=== PATIENT | male | born 1975 | race Hispanic/Latino ===

== ENCOUNTER 2018-10-30 22:10 | Observation (INO) | payer OTHER ==
[~2018-10-30] VITALS: Ht 167.6 cm; Wt 119.9 kg
--- OUTSIDE RECORDS SUMMARY | 2018-10-30 22:14 | XMS REPORT | Encounter Summary ---
Author Organization Unknown Address [address] [place] [address] Phone [phone] Reason for Visit Medical Complaint Instructions 1. Viral upper respiratory tract infection fluticasone 50 mcg/actuation nasal spray,suspension benzonatate 200 mg capsule 2. Influenza-like symptoms rapid flu (A+B) 3. Throat symptom rapid strep group A, throat 4. Elevated blood-pressure reading without diagnosis of hypertension elevated blood pressure: care instructions 5. Body mass index 40+ - severely obese body mass index: care instructions Discussion Note Pt is in NAD; Verbalizes understanding of all instructions with no questions at this time. Plan of Care Patient Instructions Stop sudafed. Take tylenol over the counter for pain/headache/fever as per pacakge insert. Take benzonatate for cough as directed. Take fluticasone as needed for congestion. [place] one spray in each nostril twice a day. Take a warm, steamy shower, blow your nose thereafter, and spray in each nostril. Tilt your head up for about 10 seconds and breath through your mouth. Do not sniff or snort the medication in or else the medication will go to your throat and not be absorbed appropriately. Take levocetirizine for allergy like symptoms like runny nose, sneezing and watery eyes. Take medications as prescribed and follow up with a PCP within 2-3 if symptoms worsen as discussed. Recommend monitor BP at home and document, bring BP log to PCP for review. Recommend follow a low sodium/fat/carb diet and exercise 30-45 mins/d 3-4 days a week once symptoms resolve. Reminders Provider Appointments None recorded. Lab Rapid Flu (A+B) 08/27/2018 [facility] Rapid Strep Group a, Throat 08/27/2018 [facility] Referral None recorded. Procedures None recorded. Surgeries None recorded. Imaging None recorded. Medications Name Start Date benzonatate 200 mg capsule Take 1 capsule 3 times a day by oral route as needed. fluticasone 50 mcg/actuation nasal spray,suspension [place] 2 sprays every day by intranasal route as needed. Medications Administered None recorded. Vitals Height Weight BMI Blood Pressure 5 ft 6 in 255 lbs 41.2 kg/m2 (1) 110/84 mm[Hg] (2) 115/80 mm[Hg] Lab Results Date Name Specimen Result Interpretation Description Value Range Status Address Rapid Strep Group a, Throat Result negative [facility]: [address] [place] [address] Swab Location Left and Right tonsillar pillars [facility]: [address] [place] [address] Rapid Flu (A+B) Influenza a negative [facility]: [address] [place] [address] Influenza B negative [facility]: [address] [place] [address] Allergies Code Code System Name Reaction Severity Status Onset NKDA Problems Name Status Onset Date Source Viral Upper Respiratory Tract Infection Active 08/27/2018 Influenza-like Symptoms Active 08/27/2018 Elevated Blood-pressure Reading without Diagnosis of Hypertension Active 08/27/2018 Body Mass Index 40+ - Severely Obese Active 08/27/2018 Throat Symptom Active 08/27/2018 Procedures Date Name Performed by Appendectomy Information not available Vaccine List None recorded. Social History Smoking Status Never Smoker Past Encounters 08/27/2018 Viral Upper Respiratory Tract Infection; Influenza-like Symptoms; Throat Symptom; Elevated Blood-pressure Reading without Diagnosis of Hypertension; Body Mass Index 40+ - Severely Obese Araceli Thorpe, [facility]-C: [address] [place] [address], Ph. History of Present Illness [id number]-Den Reported By: Patient HPI: Quality: symptoms worse in the evening. Duration: 1 days. Severity: highest temperature 99.1. Onset/Timing: first recorded 08/27/18 in clinic. Context: no ill contacts, no tick/insect bites, no recent travel, no new medications. Associated Symptoms: no fever/chills, no muscle aches, no rash, no lethargy, headache, cold symptoms, cough, nasal passage blockage (stuffiness), nasal discharge; post nasal drip, itchy throat, and body aches. Modifying Factors nothing gives relief Review of Systems:ROS as noted in the HPI Review of Systems Basic Reported By: Patient Physical Exam Adult Basic, Adult Male Complete Reported By: Patient Constitutional: General Appearance: healthy-appearing, morbidly obese. Level of Distress: NAD. Ambulation: ambulating normally Psychiatric: Mental Status: active and alert. Orientation: to time, to place, to person Eyes: Lids and Conjunctivae: non-injected, no discharge, no pallor. Pupils: PERRLA. Corneas: grossly intact. EOM: EOMI. Lens: clear. Vision: peripheral vision grossly intact Zaq-Ujdc-Tywdp-Throat: Ears: no lesions on external ear, no outer ear tenderness, EACs clear, TMs clear. Hearing: no hearing loss. Nose: no lesions on external nose, nares patent, no septal deviation, nasal passages clear, no sinus tenderness, nasal discharge--rhinorrhea, post nasal drip; B/L NTs pink and edematous. Lips, Teeth, and Gums: no mouth or lip ulcers, no bleeding gums, normal dentition. Oropharynx: moist mucous membranes, no erythema, no exudates, tonsils not enlarged Neck: Neck: supple. Lymph Nodes: no cervical LAD Lungs: Respiratory effort: no dyspnea, no tachypnea, no use of accessory muscles, no intercostal retractions. Auscultation: breath sounds normal, good air movement Cardiovascular: Heart Auscultation: RRR, no murmurs Neurologic: Gait and Station: normal gait, normal station. Cranial Nerves: grossly intact
--- OUTSIDE RECORDS SUMMARY | 2018-10-30 22:14 | XMS REPORT | Continuity of Care Document ---
Author Author [facility] Interface Address Unknown Phone Unavailable Problems Problem Status Onset Date Classification Date Reported Comments Source Body mass index 40+ - severely obese 08/27/2018 Diagnosis 08/27/2018 [facility] Elevated blood-pressure reading without diagnosis of hypertension 08/27/2018 Diagnosis 08/27/2018 [facility] Throat symptom 08/27/2018 Diagnosis 08/27/2018 [facility] Influenza-like symptoms 08/27/2018 Diagnosis 08/27/2018 [facility] Viral upper respiratory tract infection 08/27/2018 Diagnosis 08/27/2018 [facility] Viral Upper Respiratory Tract Infection 08/27/2018 Problem 08/27/2018 [facility] Influenza-like Symptoms 08/27/2018 Problem 08/27/2018 [facility] Elevated Blood-pressure Reading without Diagnosis of Hypertension 08/27/2018 Problem 08/27/2018 [facility] Body Mass Index 40+ - Severely Obese 08/27/2018 Problem 08/27/2018 [facility] Throat Symptom 08/27/2018 Problem 08/27/2018 [facility] Urinary tract infectious disease 04/09/2017 Diagnosis 04/09/2017 [facility] Feeling feverish 04/09/2017 Diagnosis 04/09/2017 [facility] Tachycardia 04/09/2017 Diagnosis 04/09/2017 [facility] Medications Medication Details Route Status Patient Instructions Ordering Provider Order Date Source Ciprofloxacin 500 MG Oral Tablet ciprofloxacin 500 mg tablet Take 1 tablet every 12 hours by oral route as directed for 10 days. Active [facility] benzonatate 200 MG Oral Capsule benzonatate 200 mg capsule Take 1 capsule 3 times a day by oral route as needed. Active [facility] Fluticasone propionate 0.05 MG/ACTUAT Metered Dose Nasal [place] fluticasone 50 mcg/actuation nasal spray,suspension [place] 2 sprays every day by intranasal route as needed. Active [facility] Allergies, Adverse Reactions, Alerts Substance Category Reaction Severity Reaction type Status Date Reported Comments Source Immunizations Immunization Date Given Site Status Last Updated Comments Source Results Order Name Results Value Reference Range Date Interpretation Comments Source RESULT negative 08/27/2018 [facility] SWAB LOCATION Left and Right tonsillar pillars 08/27/2018 [facility] Influenza A negative 08/27/2018 [facility] Influenza B negative 08/27/2018 [facility] Urinalysis macro (dipstick) panel - Urine COLOR : Mikaela 04/09/2017 [facility] Urinalysis macro (dipstick) panel - Urine CLARITY : Cloudy 04/09/2017 [facility] Urinalysis macro (dipstick) panel - Urine LEUKOCYTES : Small 04/09/2017 [facility] Urinalysis macro (dipstick) panel - Urine NITRITES : Negative 04/09/2017 [facility] Urinalysis macro (dipstick) panel - Urine UROBILINOGEN : Normal 04/09/2017 [facility] Urinalysis macro (dipstick) panel - Urine PROTEIN : 100 04/09/2017 [facility] Urinalysis macro (dipstick) panel - Urine pH : 7.5 04/09/2017 [facility] Urinalysis macro (dipstick) panel - Urine BLOOD : Negative 04/09/2017 [facility] Urinalysis macro (dipstick) panel - Urine SPECIFIC GRAVITY : 1.025 04/09/2017 [facility] Urinalysis macro (dipstick) panel - Urine KETONES : Small 04/09/2017 [facility] Urinalysis macro (dipstick) panel - Urine BILIRUBIN : Negative 04/09/2017 [facility] Urinalysis macro (dipstick) panel - Urine GLUCOSE Negative 04/09/2017 [facility] Influenza A negative 04/09/2017 [facility] Influenza B negative 04/09/2017 [facility] Vital Signs Vital Sign Value Date Comments Source Diastolic (mm Hg) 80 08/27/2018 [facility] Height 66 08/27/2018 [facility] Systolic (mm Hg) 115 08/27/2018 [facility] Weight 255 08/27/2018 [facility] Diastolic (mm Hg) 70 04/09/2017 [facility] Height 66 04/09/2017 [facility] Systolic (mm Hg) 100 04/09/2017 [facility] Weight 245 04/09/2017 [facility] Encounters Location Location Details Encounter Type Encounter Number Reason For Visit Attending Provider ADM Date DC Date Status Source [place] - [facility] - [id number] Resendiz-C: [address] [facility] [place] [address], Ph. [id number] Araceli Thorpe 04/09/2017 [facility] [place] - [facility] - [id number] Harveyroy, ADMISSION SPECIALIST-C: [address] [place] [address], Ph. [id number] Araceli Thorpe 04/09/2017 [facility] [place] - [facility] - [id number] Angela Maurilio, ADMISSION SPECIALIST-C: [address] [place] [address], Ph. [id number] Araceli Thorpe 08/27/2018 [facility] Procedures Procedure Code Date Perfomer Comments Source Appendectomy [facility]
--- OUTSIDE RECORDS SUMMARY | 2018-10-30 22:14 | XMS REPORT | Encounter Summary ---
Author Organization Unknown Address [address] [place] [address] Phone [phone] Reason for Visit Medical Complaint Instructions 1. Urinary tract infectious disease urinary tract infections in men: care instructions ciprofloxacin 500 mg tablet urinalysis, dipstick culture, urine 2. Feeling feverish rapid flu (A+B) 3. Tachycardia Discussion Note Pt is in NAD; Verbalizes understanding of all instructions with no questions at this time. Plan of Care Patient Instructions Recommend proper hydration and frequent urination. Recommend urinating after sexual intercourse. Avoid using tubs. Take medications as prescribed. Return to clinic or follow up with your PCP within 2-3 days if symptoms worsen as discussed. In case of an emergency call 911. Reminders Provider Appointments None recorded. Lab Rapid Flu (A+B) 04/09/2017 [facility] Urinalysis, Dipstick 04/09/2017 [facility] Culture, Urine 04/09/2017 [facility] Referral None recorded. Procedures None recorded. Surgeries None recorded. Imaging None recorded. Medications Name Start Date ciprofloxacin 500 mg tablet Take 1 tablet every 12 hours by oral route as needed for 10 days. Medications Administered None recorded. Vitals Height Weight BMI Blood Pressure 5 ft 6 in 245 lbs 39.5 kg/m2 100/70 mm[Hg] Lab Results Date Name Specimen Result Interpretation Description Value Range Status Address Urinalysis, Dipstick Color : Mikaela [facility]: [address] [place] [address] Clarity : Cloudy [facility]: [address] [place] [address] Leukocytes : Small [facility]: [address] [place] [address] Nitrites : Negative [facility]: [address] [place] [address] Urobilinogen : Normal [facility]: [address] [place] [address] Protein : 100 [facility]: [address] [place] [address] Ph : 7.5 [facility]: [address] [place] [address] Blood : Negative [facility]: [address] [place] [address] Specific [place] : 1.025 [facility]: [address] [place] [address] Ketones : Small [facility]: [facility] Bilirubin : Negative [facility]: [address] [facility] Glucose Negative [facility]: [address] [facility] Rapid Flu (A+B) Influenza a negative [facility]: [address] [facility] Influenza B negative [facility]: [address] [facility] Allergies Code Code System Name Reaction Severity Onset NKDA Problems None recorded. Procedures Date Name Performed by Appendectomy Information not available Vaccine List None recorded. 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 History of Present Illness [id number]-PNP-Ndxcvgx-Hernia Reported By: Patient HPI: Location: abdomen, bladder. Quality: aching, pressure, pain. Severity: moderate. Duration: ; 2 days. Onset/Timing: gradual. Context: no prior history of STDs, no known exposure to STD, sexually active, heterosexual. Modifying factors nothing gives relief. Associated Symptoms: no headache, no penile lesions/sores, no scrotal lesions/sores, no penile discharge, no flank pain, no jaundice, no blood in the urine, muscle aches, fever/chills, pain during urination, hesitancy; suprapubic cramps and mild pain, and darkening of the urine Review of Systems:ROS as noted in the HPI Review of Systems Basic Reported By: Patient Physical Exam Adult Basic, Adult Male Complete Reported By: Patient Constitutional: General Appearance: healthy-appearing, well-nourished, well-developed. Level of Distress: NAD. Ambulation: ambulating normally Psychiatric: Mental Status: active and alert. Orientation: to time, to place, to person Eyes: Lids and Conjunctivae: non-injected Neck: Neck: supple. Lymph Nodes: no cervical LAD Lungs: Respiratory effort: no dyspnea, no tachypnea, no use of accessory muscles, no intercostal retractions. Auscultation: breath sounds normal, good air movement Cardiovascular: Heart Auscultation: RRR, no murmurs Abdomen: Bowel Sounds: normal. Inspection and Palpation: soft, no guarding, no rebound tenderness, no masses, no CVA tenderness, suprapubic tenderness. Hernia: none palpable
--- OUTSIDE RECORDS SUMMARY | 2018-10-30 22:14 | XMS REPORT | Encounter Summary ---
Author Organization Unknown Address [address] [place] [address] Phone [phone] Reason for Visit Medical Complaint Instructions 1. [...] oral route as directed for 10 days. Medications Administered None recorded. Vitals Height Weight BMI Blood Pressure 5 ft 6 in 245 lbs 39.5 kg/m2 100/70 mm[Hg] Lab Results Date Name Specimen Result Interpretation Description Value Range Status Address Urinalysis, Dipstick Color : Mikaela [facility]: [address] [place] [address] Clarity : Cloudy [facility]: [address] [place] [address] Leukocytes : Small [facility]: [address] [place] [address] Nitrites : Negative [facility]: [address] [place] [address] Urobilinogen : Normal [facility]: [address] [place] [address] Protein : 100 [facility]: [address] [place] [address] Ph : 7.5 [facility]: [address] [place] [address] Blood : Negative [facility]: [address] [place] [address] Specific [place] : 1.025 [facility]: [address] [place] [address] Ketones : Small [facility]: [facility] Bilirubin : Negative [facility]: [facility] Glucose Negative [facility]: [facility] Rapid Flu (A+B) Influenza a negative [facility]: [facility] Influenza B negative [facility]: [facility] Allergies Code Code System Name Reaction Severity Onset NKDA Problems None recorded. Procedures Date Name Performed by Appendectomy Information not available Vaccine List None recorded. Social History Smoking Status Never Smoker Past Encounters 04/09/2017 Urinary Tract Infectious Disease; Feeling Feverish; Tachycardia Araceli Thorpe, DIVISION SUPERVISOR-C: [address] [place] [address], Ph. History of Present Illness Vlmz-NKW-Uacdtwc-Hernia Reported By: Patient HPI: Location: abdomen, bladder. [...]
[2018-10-30] MEDS ORDERED: VANCOMYCIN 1GM/NS 250 ML 250 ML IV STA (22:37)
[2018-10-30] MEDS ORDERED: PIPER-TAZ 3.375 GM 50 ML IV STA (22:37)
[2018-10-30] MEDS ORDERED: SODIUM CHLORIDE 0.9% 1000ML 1,000 ML IV STA (22:37)
[2018-10-30] MEDS ORDERED: ONDANSETRON HCL INJ 2MG/ML 2ML 2 MG/ML VIAL IV PRN (23:00)
[2018-10-30] MEDS ORDERED: MORPHINE SULFATE INJ 4 MG/ML INJ 1ML IV PRN (23:00)
[2018-10-30 23:34] LABS: BASOPHILS # (AUTO) 0.1 (0.0-0.1); BASOPHILS % 0.8 % (0.0-1.0); EOSINOPHILS # (AUTO) 0.1 (0.0-0.4); EOSINOPHILS % 1.4 % (0.0-6.0); HEMOGLOBIN 14.2 g/dL (14.0-18.0); LYMPHOCYTES # (AUTO) 2.1 (1.0-3.2); LYMPHOCYTES % 32.1 % (18.0-39.1); MEAN CORPUSCULAR HEMOGLOBIN 29.2 pg (28-32); MEAN CORPUSCULAR HGB CONC 34.6 g/dL (31-35); MEAN CORPUSCULAR VOLUME 84.4 fL (81-99); MONOCYTES # (AUTO) 0.5 (0.2-0.8); MONOCYTES % 7.8 % (4.4-11.3); NEUTROPHILS # (AUTO) 3.7 (2.1-6.9); NEUTROPHILS % 57.4 % (38.7-80.0); PLATELET COUNT 324 x10e3/uL (140-360); RED BLOOD COUNT 4.86 x10e6/uL (4.3-5.7); RED CELL DISTRIBUTION WIDTH 13.4 % (11.7-14.4)
[2018-10-30 23:50] LABS: ALANINE AMINOTRANSFERASE 129 IU/L (0-55); ALBUMIN 3.7 g/dL (3.5-5.0); ALKALINE PHOSPHATASE 282 IU/L (40-150); ANION GAP 17.2 mmol/L (8-16); BLOOD UREA NITROGEN 13 mg/dL (7-26); BUN/CREATININE RATIO 11 (6-25); CALCIUM 9.2 mg/dL (8.4-10.2); CARBON DIOXIDE 22 mmol/L (22-29); CHLORIDE 104 mmol/L (98-107); CREATININE, SERUM 1.23 mg/dL (0.72-1.25); EST GLOMERULAR FILTRATION RATE > 60 ML/MIN (60-); GLUCOSE 103 mg/dL (74-118); POTASSIUM 4.2 mmol/L (3.5-5.1); SODIUM 139 mmol/L (136-145)
[2018-10-30] MEDS ORDERED: ENOXAPARIN SODIUM INJ 100 MG/ML SYR SC STA (23:53)
[2018-10-31] MEDS: SODIUM CHLORIDE 0.9% 1000ML 1,000 ML IV SCH ×2 (01:40→11:23)
[2018-10-31] MEDS: VANCOMYCIN 1GM/NS 250 ML 250 ML IV SCH ×3 (02:57→23:53)
[2018-10-31] MEDS ORDERED: PIPER-TAZ 3.375 GM 50 ML IV SCH (06:00)
--- NOTE | 2018-10-31 06:46 | NUR ---
WALKING ROUNDS WITH HIEU ESTES
--- NOTE | 2018-10-31 06:49 | NUR ---
RECEIVED BEDSIDE REPORT FROM MAICOL ESTES TO ASSUME PATIENTS CARE
--- NOTE | 2018-10-31 07:45 | NUR ---
ROUNDING DONE. PT RESTING QUIETLY WITH EYES CLOSED. AROUSES EASILY TO VOICE. NO COMPLAINTS AT THIS TIME. UPDATED PT ON THE PLAN OF CARE. PT PENDING ADMISSION
[2018-10-31] MEDS: PIPER-TAZ 3.375 GM 50 ML IV SCH ×2 (09:59→18:10)
--- NOTE | 2018-10-31 10:08 | NUR ---
PT AMBULATED TO THE RESTROOM WITH STEADY GAIT
--- NOTE | 2018-10-31 13:57 | NUR ---
PT RESTING QUIETLY WATCHING TV. FAMILY AT BEDSIDE. DENIES ANY PAIN. UPDATED PT ON THE PLAN OF CARE. STILL AWAITING ADMISSION
--- NOTE | 2018-10-31 14:25 | NUR ---
PT PLACED ON A HOSPITAL BED
--- NOTE | 2018-10-31 18:45 | NUR ---
REPORT GIVEN TO PM NURSE VAZQUEZ Murillo RN
--- NOTE | 2018-10-31 21:51 | NUR ---
attempted to call report without success
[2018-10-31 23:00] VITALS: BP 126/81
[2018-10-31 23:30] VITALS: BP 126/81
[2018-11-01] VITALS (7 sets, daily range): BP systolic 105–129; BP diastolic 61–81
[2018-11-01] MEDS: PIPER-TAZ 3.375 GM 50 ML IV SCH ×3 (02:33→19:17)
--- NOTE | 2018-11-01 07:00 | NUR ---
SHIFT REPORT RECEIVED FROM NIGHT RN WHILE ROUNDING. PT DENIES NEEDS AT THIS TIME.
[2018-11-01] MEDS ORDERED: ACETAMINOPHEN 325 MG TAB PO PRN (08:45)
[2018-11-01] MEDS: VANCOMYCIN 1GM/NS 250 ML 250 ML IV SCH ×2 (11:03→23:00)
[2018-11-02] VITALS: BP 98/53
[2018-11-02] MEDS: PIPER-TAZ 3.375 GM 50 ML IV SCH ×2 (02:00→09:13)
[2018-11-02 04:00] VITALS: BP 101/54
[2018-11-02 05:41] LABS: BASOPHILS % 0.6 % (0.0-1.0); EOSINOPHILS # (AUTO) 0.2 (0.0-0.4); EOSINOPHILS % 2.9 % (0.0-6.0); HEMATOCRIT 40.7 % (38.2-49.6); HEMOGLOBIN 13.1 g/dL (14.0-18.0); LYMPHOCYTES # (AUTO) 2.5 (1.0-3.2); LYMPHOCYTES % 36.7 % (18.0-39.1); MEAN CORPUSCULAR HEMOGLOBIN 28.1 pg (28-32); MEAN CORPUSCULAR HGB CONC 32.2 g/dL (31-35); MEAN CORPUSCULAR VOLUME 87.2 fL (81-99); MONOCYTES # (AUTO) 0.5 (0.2-0.8); MONOCYTES % 7.2 % (4.4-11.3); NEUTROPHILS # (AUTO) 3.6 (2.1-6.9); NEUTROPHILS % 51.7 % (38.7-80.0); PLATELET COUNT 313 x10e3/uL (140-360); RED BLOOD COUNT 4.67 x10e6/uL (4.3-5.7); RED CELL DISTRIBUTION WIDTH 13.3 % (11.7-14.4)
[2018-11-02 06:01] LABS: ANION GAP 12.3 mmol/L (8-16); BLOOD UREA NITROGEN 14 mg/dL (7-26); BUN/CREATININE RATIO 12 (6-25); CARBON DIOXIDE 25 mmol/L (22-29); CHLORIDE 104 mmol/L (98-107); CREATININE, SERUM 1.13 mg/dL (0.72-1.25); EST GLOMERULAR FILTRATION RATE > 60 ML/MIN (60-); GLUCOSE 98 mg/dL (74-118); POTASSIUM 4.3 mmol/L (3.5-5.1); SODIUM 137 mmol/L (136-145)
[2018-11-02 07:39] VITALS: BP 127/79
[2018-11-02 08:00] VITALS: BP 127/79
[2018-11-02] MEDS: FAMOTIDINE 20 MG TAB PO SCH ×2 (08:22→16:31)
--- NOTE | 2018-11-02 09:08 | NUR ---
SOCIAL WORK INITIAL ASSESSMENT Sign Fabricator to bedside to discuss plan of care with patient/family. CM/SW role and care transitions discussed. Anticipated discharge plan discussed along with duration of care. CM/SW discussed patients right to make decisions in care. CM/SW work hours given. 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 Name and number was also written on the patients whiteboard. Patient verbalized understanding of discussion. CM will follow-up with ongoing discharge and transition of care needs.
[2018-11-02] MEDS ORDERED: SODIUM CHLORIDE 0.9% 250ML 250 ML ONE (11:17)
[2018-11-02 11:20] VITALS: BP 109/65
--- NOTE | 2018-11-02 11:31 | NUR ---
WOUND CARE CONSULTATION- INITIAL EVALUATION Patient admitted to ER for cellulitis of RLE. LABS: WBC6.9 HGB13.1 HCT40.7 NEUT%51.7 GLU98 ALB3.7 -Blood Cx - Negative. -Wound Care Consulted for RLE Wounds. PATIENT VISIT: - Patient in bed calm and in good spirits. AA0x4 - VSS, Afebrile. - RLE Medial aspect- scabbed areas, non-draining with mild erythema to surrounding areas. Open To Air. - Pt states to have had recent tattoo that became painful and very red and draining. - Pt on IV ABX- Vancomycin - Site not cultured. No longer draining and appears to be healing. IMPRESSION: RLE- Medial - Infected Tattoo Site with Scabbing and Dry Skin. RECOMMENDATION: RLE- Medial - Infected Tattoo Site. - Wash Site with Hibiclens Soap and Pat Dry Daily - Apply Polysporin Ointment and Leave Open To Air q12H. Thank you for consulting with Wound Care. Addendum: 11/02/18 at 1139 by Joss Gil RN Amended: Links added.
[2018-11-02] MEDS: VANCOMYCIN 1GM/NS 250 ML 250 ML IV SCH (11:37)
--- NOTE | 2018-11-02 11:51 | NUR ---
CM SPOKE TO DR. STRONG REGARDING PATIENT PLAN OF CARE AND BARRIERS TO DISCHARGE. DR. STRONG INFORMED OF PATIENT STATUS. PER DR. STRONG, PATIENT TO DISCHARGE ON PO ANTIBIOTICS. BEDSIDE RN, ARTI REVELES.
[2018-11-02 15:54] VITALS: BP 128/84
[2018-11-02] MEDS ORDERED: AUGMENTIN 875-1 EACH PO (17:22)
--- NOTE | 2018-11-02 18:38 | NUR ---
IV DC'D SECURED WITH 4X4 GAUZE AND TAPE. RX GIVEN EDUCATION AND F/U INSTRUCTIONS.
[2018-11-02] MEDS ORDERED: BACITRACIN/POLYMYXIN 30 GM OINT TP SCH (21:00)
--- NOTE | 2018-11-03 00:57 | Discharge Summary ---
PRIMARY CARE PROVIDER: Dr. Isacc Onofre. ADMITTING DIAGNOSIS: Cellulitis, right lower leg. DISCHARGE DIAGNOSIS: Cellulitis, right lower leg. BRIEF HISTORY: Mr. Matute is a 43-year-old gentleman who presents with erythema and swelling of the right medial calf after having extensive tattoo done. He failed outpatient treatment with p.o. Bactrim and presented with worsening cellulitis. HOSPITAL COURSE: The patient was started on IV vancomycin and Zosyn. His erythema improved within 48 hours and he was discharged home on p.o. Augmentin with instructions to resume a regular diet, activity as tolerated, and follow up with his PCP within 2 weeks. SAMUEL STRONG MD Job#: [id number] CF
== END 2018-11-02 18:55 | disposition home or self-care (01) ==
LOC: ER 22:10 → ERHOLD 23:18 → MED/SURG3 10-31 00:38 → ERHOLD 10-31 01:34 → IMCU 10-31 22:45
PROVIDERS: ADMIT Internal Medicine; ATTEND Internal Medicine
DX: L03.115 Cellulitis of right lower limb (principal); L81.8 Other specified disorders of pigmentation
CPT/HCPCS: 36415 ×3; 80048; 80053; 80202; 83605; 85025 ×2; 87040; 93971; 99284; G0378 ×4; J1650; J2543 ×3; J3370 ×3; J7030 ×2; J7050

== ENCOUNTER 2021-02-24 02:59 | Emergency (ER) | payer OTHER ==
[~2021-02-24] VITALS: Ht 167.6 cm; Wt 113.4 kg
[~2021-02-24 02:59] MED LIST: AUGMENTIN 875-1 EACH PO
[2021-02-24] MEDS ORDERED: PANTOPRAZOLE 40 MG 10ML VIAL IV STA (03:06)
[2021-02-24] MEDS ORDERED: ONDANSETRON HCL INJ 2MG/ML 2ML 2 MG/ML VIAL IV STA (03:06)
[2021-02-24] MEDS ORDERED: DICYCLOMINE HCL 20 MG/2 ML VIAL IM ONE ×2 (03:15→03:18)
[2021-02-24] MEDS ORDERED: SODIUM CHLORIDE 0.9% 1000ML 1,000 ML IV ONE (03:15)
[2021-02-24] MEDS ORDERED: ONDANSETRON HCL INJ 2MG/ML 2ML 2 MG/ML VIAL ONE (03:19)
[2021-02-24 03:31] LABS: BASOPHILS % 0.4 % (0.0-1.0); EOSINOPHILS # (AUTO) 0.1 (0.0-0.4); EOSINOPHILS % 0.8 % (0.0-6.0); HEMATOCRIT 46.6 % (38.2-49.6); HEMOGLOBIN 15.4 g/dL (14.0-18.0); LYMPHOCYTES # (AUTO) 2.2 (1.0-3.2); LYMPHOCYTES % 23.3 % (18.0-39.1); MEAN CORPUSCULAR HEMOGLOBIN 28.4 pg (28-32); MEAN CORPUSCULAR VOLUME 85.8 fL (81-99); MONOCYTES # (AUTO) 0.6 (0.2-0.8); MONOCYTES % 6.2 % (4.4-11.3); NEUTROPHILS # (AUTO) 6.6 (2.1-6.9); NEUTROPHILS % 69.1 % (38.7-80.0); PLATELET COUNT 263 x10e3/uL (140-360); RED BLOOD COUNT 5.43 x10e6/uL (4.3-5.7); RED CELL DISTRIBUTION WIDTH 13.3 % (11.7-14.4)
[2021-02-24 03:48] LABS: AMYLASE 65 U/L (25-125); LIPASE 29 U/L (8-78)
[2021-02-24 03:50] LABS: ALANINE AMINOTRANSFERASE 24 IU/L (0-55); ALBUMIN 4.3 g/dL (3.5-5.0); ALBUMIN/GLOBULIN RATIO 1.3 (0.8-2.0); ALKALINE PHOSPHATASE 104 IU/L (40-150); ANION GAP 16.8 mmol/L (8-16); BLOOD UREA NITROGEN 15 mg/dL (7-26); BUN/CREATININE RATIO 16 (6-25); CALCIUM 9.3 mg/dL (8.4-10.2); CARBON DIOXIDE 21 mmol/L (22-29); CHLORIDE 102 mmol/L (98-107); CREATININE, SERUM 0.96 mg/dL (0.72-1.25); EST GLOMERULAR FILTRATION RATE > 60 ML/MIN (60-); GLUCOSE 109 mg/dL (74-118); POTASSIUM 3.8 mmol/L (3.5-5.1); SODIUM 136 mmol/L (136-145)
== END 2021-02-24 04:48 | disposition home or self-care (01) ==
LOC: ER 03:08
DX: A05.9 Bacterial foodborne intoxication, unspecified (principal); R19.7 Diarrhea, unspecified; R11.2 Nausea with vomiting, unspecified
CPT/HCPCS: 36415; 80053; 82150; 83690; 85025; 99283; C9113; J0500; J2405; J7030

== ENCOUNTER 2021-06-05 03:31 | Emergency (ER) | payer OTHER ==
[~2021-06-05] VITALS: Ht 167.6 cm; Wt 113.4 kg
[2021-06-05] MEDS ORDERED: ONDANSETRON HCL 4 MG ORAL DISINTEGRATING TAB PO ONE (03:45)
[2021-06-05] MEDS ORDERED: DICYCLOMINE HCL 20 MG/2 ML VIAL IM ONE ×2 (03:45→03:48)
[2021-06-05] MEDS ORDERED: ONDANSETRON HCL 4 MG ORAL DISINTEGRATING TAB ONE (03:46)
[2021-06-05] MEDS ORDERED: PROMETHAZINE HCL (IM) 25 MG/ML VIAL IM ONE ×2 (04:00→04:02)
== END 2021-06-05 03:57 | disposition home or self-care (01) ==
LOC: ER 03:37
DX: R11.2 Nausea with vomiting, unspecified (principal); R19.7 Diarrhea, unspecified; A05.9 Bacterial foodborne intoxication, unspecified; Z87.19 Personal history of other diseases of the digestive system
CPT/HCPCS: 99283; J0500; J2550; Q0162

== ENCOUNTER 2021-06-05 10:28 | Emergency (ER) | payer OTHER ==
[~2021-06-05] VITALS: Ht 167.6 cm; Wt 113.4 kg
[2021-06-05] MEDS ORDERED: KETOROLAC TROMETHAMINE 30 MG/ML VIAL IV STA (10:33)
[2021-06-05] MEDS ORDERED: ONDANSETRON HCL INJ 2MG/ML 2ML 2 MG/ML VIAL IV STA (10:33)
[2021-06-05] MEDS ORDERED: FAMOTIDINE 20 MG/2 ML VIAL IV STA (10:51)
[2021-06-05 11:39] LABS: ALBUMIN 4.5 g/dL (3.5-5.0); ALBUMIN/GLOBULIN RATIO 1.3 (0.8-2.0); ANION GAP 16.8 mmol/L (8-16); CALCIUM 9.6 mg/dL (8.4-10.2); CREATININE, SERUM 1.05 mg/dL (0.72-1.25); POTASSIUM 3.8 mmol/L (3.5-5.1)
[2021-06-05] MEDS ORDERED: SODIUM CHLORIDE 0.9% 50ML 50 ML ONE (11:41)
[2021-06-05] MEDS ORDERED: IOPAMIDOL 370 MG/ML 200 ML INFUS..BTL INJ ONE (11:41)
[2021-06-05 11:58] LABS: BASOPHILS % 0.2 % (0.0-1.0); HEMOGLOBIN 15.6 g/dL (14.0-18.0); LYMPHOCYTES # (AUTO) 0.7 (1.0-3.2); LYMPHOCYTES % 7.1 % (18.0-39.1); MEAN CORPUSCULAR HEMOGLOBIN 28.6 pg (28-32); MEAN CORPUSCULAR HGB CONC 33.2 g/dL (31-35); MEAN CORPUSCULAR VOLUME 86.2 fL (81-99); MONOCYTES # (AUTO) 0.4 (0.2-0.8); MONOCYTES % 3.3 % (4.4-11.3); NEUTROPHILS # (AUTO) 9.3 (2.1-6.9); PLATELET COUNT 299 x10e3/uL (140-360); RED BLOOD COUNT 5.45 x10e6/uL (4.3-5.7); RED CELL DISTRIBUTION WIDTH 13.4 % (11.7-14.4)
[2021-06-05 13:12] VITALS: BP 144/84
== END 2021-06-05 13:20 | disposition home or self-care (01) ==
LOC: ER 10:45
DX: R11.2 Nausea with vomiting, unspecified (principal); R10.13 Epigastric pain
CPT/HCPCS: 36415; 74177; 80053; 83690; 85025; 99283; J1885; J2405; Q9967

== ENCOUNTER 2021-06-08 09:04 | Emergency (ER) | payer OTHER ==
[~2021-06-08] VITALS: Ht 167.6 cm; Wt 113.4 kg
[2021-06-08] MEDS ORDERED: FAMOTIDINE 20 MG/2 ML VIAL IV STA (09:19)
[2021-06-08] MEDS ORDERED: ONDANSETRON HCL INJ 2MG/ML 2ML 2 MG/ML VIAL IV STA (09:19)
[2021-06-08] MEDS ORDERED: ONDANSETRON HCL INJ 2MG/ML 2ML 2 MG/ML VIAL ONE ×2 (09:29→09:30)
[2021-06-08] MEDS ORDERED: SODIUM CHLORIDE 0.9% 1000ML 1,000 ML IV SCH (09:30)
[2021-06-08] MEDS ORDERED: FAMOTIDINE 20 MG/2 ML VIAL IV ONE (09:30)
[2021-06-08 09:39] LABS: BASOPHILS % 0.3 % (0.0-1.0); EOSINOPHILS % 0.1 % (0.0-6.0); HEMATOCRIT 49.4 % (38.2-49.6); LYMPHOCYTES # (AUTO) 1.1 (1.0-3.2); LYMPHOCYTES % 12.2 % (18.0-39.1); MEAN CORPUSCULAR HGB CONC 32.4 g/dL (31-35); MEAN CORPUSCULAR VOLUME 86.4 fL (81-99); MONOCYTES # (AUTO) 0.3 (0.2-0.8); MONOCYTES % 3.5 % (4.4-11.3); NEUTROPHILS # (AUTO) 7.4 (2.1-6.9); NEUTROPHILS % 83.6 % (38.7-80.0); PLATELET COUNT 298 x10e3/uL (140-360); RED BLOOD COUNT 5.72 x10e6/uL (4.3-5.7); RED CELL DISTRIBUTION WIDTH 13.4 % (11.7-14.4)
[2021-06-08 10:02] LABS: ALBUMIN 4.4 g/dL (3.5-5.0); ALBUMIN/GLOBULIN RATIO 1.2 (0.8-2.0); ANION GAP 16.8 mmol/L (8-16); CALCIUM 9.3 mg/dL (8.4-10.2); CREATININE, SERUM 1.16 mg/dL (0.72-1.25); POTASSIUM 3.8 mmol/L (3.5-5.1)
[2021-06-08 10:08] LABS: CREATINE KINASE MB 0.7 ng/mL (0-5.0)
[2021-06-08] MEDS ORDERED: PROMETHAZINE 12.5MG/ NACL 0.9% 12.5 MG/50 ML BAG IV ONE (11:00)
[2021-06-08 11:32] LABS: CLARITY,URINE CLEAR (CLEAR); COLOR,URINE YELLOW (YELLOW)
[2021-06-08 11:35] LABS: KETONES,URINE 2+ (NEGATIVE); LEUKOCYTE ESTERASE ,URINE NEGATIVE (NEGATIVE); NITRITE,URINE NEGATIVE (NEGATIVE); PROTEIN,URINE DIPSTICK NEGATIVE (NEGATIVE)
[2021-06-08 11:36] LABS: AMPHETAMINES SCREEN,URINE NEGATIVE (NEGATIVE); PHENCYCLIDINE SCREEN,URINE NEGATIVE (NEGATIVE)
[2021-06-08 11:37] LABS: BACTERIA,URINE RARE /HPF; BENZODIAZEPINES SCREEN,URINE NEGATIVE (NEGATIVE); EPITHELIAL CELLS,URINE FEW /LPF; RBC,URINE 0-5 /HPF (0-5); URINE UROBILINOGEN 0.2 mg/dL (0.2 - 1); WBC,URINE (MAN) 0-5 /HPF (0-5)
[2021-06-08 12:53] VITALS: BP 133/88
[2021-06-08] MEDS ORDERED: DICYCLOMINE HCL 20 MG/2 ML VIAL IM ONE (13:00)
== END 2021-06-08 12:56 | disposition home or self-care (01) ==
LOC: ER 09:10
DX: R11.2 Nausea with vomiting, unspecified (principal); K21.9 Gastro-esophageal reflux disease without esophagitis; Z87.19 Personal history of other diseases of the digestive system
CPT/HCPCS: 36415; 71045; 76705; 80053; 80307; 81001; 82150; 82550; 82553; 83690; 83735; 84484; 85025; 99284; C9113; J0500; J2405; J2550

== ENCOUNTER → 2021-07-04 | Day surgery (SDC) | payer OTHER ==
[~2021-07-04] MED LIST changes: +METOPROLOL SUCC25 MG PO; +OMEPRAZOLE40 MG PO
[2021-07-04 11:40] VITALS: BP 102/60
== END | disposition home or self-care (01) ==
LOC: OR 07:14
PROVIDERS: ATTEND Internal Medicine Gastroenterology
DX: K29.70 Gastritis, unspecified, without bleeding (principal); K63.5 Polyp of colon; K20.90 Esophagitis, unspecified without bleeding; K44.9 Diaphragmatic hernia without obstruction or gangrene; K31.89 Other diseases of stomach and duodenum; K57.30 Diverticulosis of large intestine without perforation or abscess without bleeding; K21.9 Gastro-esophageal reflux disease without esophagitis; R19.7 Diarrhea, unspecified; K64.8 Other hemorrhoids; I10 Essential (primary) hypertension; E66.01 Morbid (severe) obesity due to excess calories; Z01.810 Encounter for preprocedural cardiovascular examination; Z01.812 Encounter for preprocedural laboratory examination; Z20.822 Contact with and (suspected) exposure to COVID-19; Z68.41 Body mass index [BMI] 40.0-44.9, adult; Z87.19 Personal history of other diseases of the digestive system
CPT/HCPCS: 43239; 45385; 93005; U0002